=== PATIENT | male | born 1940 | race Caucasian/White ===

== ENCOUNTER → 2016-03-06 | Outpatient (CLI) | payer MEDICARE, BC ==
[~2016-03-06] MED LIST: BENICAR20 MG PO; CIPRO500 MG PO; COUMADIN,JANTOVE1 MG PO; COUMADIN,JANTOVE6 MG PO; COZAAR50 MG PO; CRESTOR10 MG PO; Coumadin dosing per PO; ENDOCET 5-3251 EACH PO; FOSAMAX35 MG PO; Flomax PO; Glucosamine/Chondroi PO; LANOXIN,DIGIT0.25 MG PO; LIDODERM 5% P1 PATCH TP; LO-DOSE ASPIRIN81 M2 PO; Metamucil Packet PO; OxyCODONE PO; OxyCONTIN PO; PERCOCET 7.51 TABLET PO; Prevacid PO; RAPAFLO8 MG PO; SENOKOT S,PE1 TABLET PO; TAMBOCOR100 MG PO; THERAGRAN1 TABLET PO; THERALITH PO; TRICOR145 MG PO; Tambocor PO; XARELTO20 MG PO
== END | disposition home or self-care (01) ==
LOC: CDC 11:28
DX: R94.31 Abnormal electrocardiogram [ECG] [EKG] (principal); I45.81 Long QT syndrome; I45.9 Conduction disorder, unspecified; N21.8 Other lower urinary tract calculus
CPT/HCPCS: 93000

== ENCOUNTER 2016-03-07 10:58 | Day surgery (SDC) | payer OTHER, BC ==
[~2016-03-07] VITALS: Ht 180.3 cm; Wt 108.9 kg
[2016-03-07 11:39] VITALS: BP 113/68
[2016-03-07 14:55] VITALS: BP 143/80
== END 2016-03-07 15:30 | disposition home or self-care (01) ==
LOC: SDC 10:58
DX: N20.1 Calculus of ureter (principal); N21.0 Calculus in bladder; I10 Essential (primary) hypertension; E78.5 Hyperlipidemia, unspecified; I48.91 Unspecified atrial fibrillation; G47.30 Sleep apnea, unspecified; Z79.82 Long term (current) use of aspirin
CPT/HCPCS: 74420; C1758; C1876; J0690; J2250; J2405; J3010; J7050